=== PATIENT | male | born 1980 | race Caucasian/White ===

== ENCOUNTER 2019-01-11 11:12 | Emergency (ER) | payer SELFPAY ==
[2019-01-11 11:17] VITALS: BP 108/60; PULSE 92; TEMP 98.8; BMI 24.7
--- NOTE | 2019-01-11 12:24 | PDOC ---
History of Present Illness - General Chief Complaint: Pain Stated Complaint: ABD PAIN Time Seen by Provider: 01/11/19 11:45 History Source: Patient Exam Limitations: No Limitations - History of Present Illness Initial Comments: 01/11/19 12:23 CHIEF COMPLAINT: Abdominal pain HISTORY OF PRESENT ILLNESS: This is an otherwise healthy 38-year-old male who presents emergency department complaining of 3 days of generalized abdominal pain and nonbloody diarrhea, 3-4 times daily. He denies fevers/chills. He has not had nausea or vomiting. He denies recent travel. He did eat and a [employer] restaurant several days ago, although no one else was with him is ill. He reports taking Pepto-Bismol without resolution of symptoms. REVIEW OF SYSTEMS: GENERAL/CONSTITUTIONAL: No fever or chills. No weakness. No weight change. HEAD, EYES, EARS, NOSE AND THROAT: No change in vision. No ear pain or discharge. No sore throat. CARDIOVASCULAR: No chest pain or palpitations. RESPIRATORY: No cough, wheezing, or shortness of breath. GASTROINTESTINAL: See history of present illness. GENITOURINARY: No dysuria, frequency, or change in urination. MUSCULOSKELETAL: No joint or muscle swelling or pain. No neck or back pain. SKIN: No rash or easy bruising. NEUROLOGIC: No headache, vertigo, loss of consciousness, or loss of sensation. PSYCHIATRIC: No depression or anxiety. ENDOCRINE: No increased thirst. No abnormal weight change. HEMATOLOGIC/LYMPHATIC: No anemia, easy bleeding, or history of blood clots. ALLERGIC/IMMUNOLOGIC: No hives or skin allergy. No latex allergy. PHYSICAL EXAM: GENERAL: The patient is awake, alert, and fully oriented, in no acute distress. HEAD: Normal with no signs of trauma. ENT: Pupils equal, round and reactive to light, extraocular movements intact, sclera anicteric, conjunctiva clear. Neck supple. LUNGS: Clear to auscultation bilaterally. Normal excursion. No respiratory distress or use of accessory muscles. CV: RRR, S1/S2, no MRG. Cap refill < 2 sec. ABDOMEN: Soft, non-distended, diffusely tender without peritoneal signs; no guarding or rebound tenderness. EXTREMITIES: Normal range of motion, no edema. NEUROLOGICAL: Normal speech, normal gait. CN II-XII grossly intact. PSYCH: Normal mood, normal affect. SKIN: Warm, dry, normal turgor, no rashes or lesions noted. Past History - Past Medical History Allergies/Adverse Reactions: Allergies Allergy/AdvReac Type Severity Reaction Status Date / Time No Known Allergies Allergy Verified 01/11/19 11:17 Home Medications: Ambulatory Orders NK [No Known Home Medication] 01/01/16 COPD: No - Suicide/Smoking/Psychosocial Hx Smoking History: Never smoked Hx Alcohol Use: No Drug/Substance Use Hx: No *Physical Exam - Vital Signs Last Vital Signs Temp Pulse Resp BP Pulse Ox 98.8 F 92 H 18 108/60 98 01/11/19 11:14 01/11/19 11:14 01/11/19 11:14 01/11/19 11:14 01/11/19 11:14 ED Treatment Course - LABORATORY CBC & Chemistry Diagram: 01/11/19 12:35 01/11/19 12:35 Medical Decision Making - Medical Decision Making 01/11/19 12:51 A/P: 38-year-old male with generalized abdominal pain and diarrhea, no focal tenderness on exam. 1. Labs including CBC, CMP, lipase, UA 2. IV fluids 3. Reassess 01/11/19 13:53 K 3.4 - repleted orally Patient re-examined and is without focal abdominal tenderness Will dc with supportive measures Return precautions reviewed *DC/Admit/Observation/Transfer Diagnosis at time of Disposition: Diarrhea - Discharge Dispostion Disposition: HOME Condition at time of disposition: Stable Decision to Admit order: No - Referrals Referrals: [facility] – [place] [facility] [place] [Provider Group] - Patient Instructions Printed Discharge Instructions: Probiotics May Decrease Intensity and Duration of Diarrhea Due to Infection, DI for Diarrhea and Traveler's Diarrhea -- Adult, [place] Diet Additional Instructions: -Stay well-hydrated and take probiotics as prescribed -Follow up with primary care next week (referral enclosed) -Eat a bland diet (instructions enclosed) until you are feeling better -Return here for worsening pain, blood in the stool, or any other concerning symptoms - Post Discharge Activity Forms/Work/School Notes: Back to Work
[2019-01-11] MEDS ORDERED: SODIUM CHLORIDE 1,000 ML IV STA (12:31)
[2019-01-11 12:52] LABS: BASO % 0.4 % (0-2.0); EOS % 0.1 % (0-4.5); HEMATOCRIT 43.5 % (35.4-49); MCH 30.3 pg (25.7-33.7); MCHC 34.6 g/dl (32.0-35.9); MEAN CELL VOLUME 87.5 fl (80-96); MEAN PLT VOLUME 8.3 fl (7.5-11.1); MONO % 6.4 % (3.8-10.2); NEUT % 75.1 % (42.8-82.8); RBC 4.97 M/mm3 (4.00-5.60); RDW 12.6 % (11.9-15.9); WHITE BLOOD COUNT 4.4 K/mm3 (4.0-10.0)
[2019-01-11 13:12] LABS: PLATELET COUNT 146 K/MM3 (134-434)
[2019-01-11 13:23] LABS: BLOOD UREA NITROGEN 14.9 mg/dL (7-18); CREATININE 0.7 mg/dL (0.55-1.3); POTASSIUM 3.4 mmol/L (3.5-5.1)
[2019-01-11 13:24] LABS: ALBUMIN 3.8 g/dl (3.4-5.0); BILIRUBIN,TOTAL 0.6 mg/dL (0.2-1); CALCIUM 8.3 mg/dL (8.5-10.1); TOT PROT 7.2 g/dl (6.4-8.2)
[2019-01-11 13:39] LABS: EPI CELLS 1.8 /HPF (0-5/HPF); HYALINE CASTS 9 /lpf (0-8); PH,URINE 5.5 (5.0-8.0); URINE APPEARANCE CLEAR; URINE BACTERIA 2.5 /hpf (NEGATIVE); URINE BILIRUBIN NEGATIVE (NEGATIVE); URINE COLOR DK YELLOW; URINE GLUCOSE (UA) NEGATIVE (NEGATIVE); URINE KETONE NEGATIVE (NEGATIVE); URINE LEUK ESTERASE NEGATIVE (NEGATIVE); URINE NITRITE NEGATIVE (NEGATIVE); URINE PROTEIN 1+ (NEGATIVE); URINE RBC 2 /hpf (0-4); URINE UROBILINOGEN 0.2 mg/dL (0.2-1.0); URINE WBC 1 /hpf (0-5)
[2019-01-11] MEDS ORDERED: POTASSIUM CHLORIDE TABS 20 MEQ TABLET.ER (FP) PO ONE ×2 (13:52→14:08)
== END 2019-01-11 14:15 | disposition home or self-care (01) ==
LOC: JER 11:12
PROC: 3E0337Z Introduction of Electrolytic and Water Balance Substance into Peripheral Vein, Percutaneous Approach (ICD-10-PCS; principal; 2019-01-11)
DX: R19.7 Diarrhea, unspecified (principal); E87.6 Hypokalemia
CPT/HCPCS: 36415; 80053; 81003; 83690; 85025; 99281-25; J7030

== ENCOUNTER 2021-12-19 22:18 | Observation (INO) | payer OTHER ==
[2021-12-19 22:33] VITALS: TEMP 98.9; BMI 26.1
[2021-12-20] MEDS ORDERED: ASPIRIN 81 MG CHEWABLE TABLETS PO ONE (01:06)
[2021-12-20] MEDS ORDERED: ASPIRIN 81 MG CHEWABLE TABLETS ONE (01:07)
[2021-12-20 01:30] LABS: BASO % 0.9 % (0-2.0); HEMATOCRIT 41.1 % (35.4-49); HEMOGLOBIN 14.2 GM/dL (11.7-16.9); LYMPH % 27.8 % (8-40); MCH 30.3 pg (25.7-33.7); MCHC 34.5 g/dl (32.0-35.9); MEAN CELL VOLUME 87.9 fl (80-96); MONO % 8.1 % (3.8-10.2); NEUT % 61.2 % (42.8-82.8); PLATELET COUNT 225 10^3/uL (134-434); RBC 4.68 M/mm3 (4.00-5.60); RDW 13.2 % (11.9-15.9); WHITE BLOOD COUNT 6.6 K/mm3 (4.0-10.0)
[2021-12-20 01:39] LABS: INR 1.12 (0.83-1.09); PROTHROMBIN TIME (PATIENT) 12.9 SEC (9.7-13.0)
[2021-12-20 01:41] LABS: ACTIVATED PTT 34.2 SECONDS (25.2-36.5)
[2021-12-20 02:11] LABS: ALBUMIN 4.1 g/dl (3.4-5.0); BLOOD UREA NITROGEN 27.5 mg/dL (7-18); MAGNESIUM 2.4 mg/dL (1.8-2.4)
[2021-12-20 02:14] LABS: CREATININE 0.7 mg/dL (0.55-1.3)
[2021-12-20 02:16] LABS: BILIRUBIN,TOTAL 0.2 mg/dL (0.2-1); TOT PROT 7.4 g/dl (6.4-8.2)
[2021-12-20 02:19] LABS: N-TERMINAL BNP 8.6 pg/ml (5-125)
[2021-12-20] MEDS ORDERED: ASPIRIN COATED 81 MG TABLET.EC ONE (09:46)
[2021-12-20] MEDS ORDERED: ENOXAPARIN NA (PORCINE) 40 MG/0.4 ML DISP.SYRIN SQ ONE (09:47)
[2021-12-20] MEDS ORDERED: ASPIRIN COATED 81 MG TABLET.EC PO SCH (10:00)
[2021-12-20] MEDS ORDERED: ENOXAPARIN NA (PORCINE) 30 MG/0.3 ML DISP.SYRIN SQ SCH (10:00)
[2021-12-20] MEDS ORDERED: ENOXAPARIN NA (PORCINE) 40 MG/0.4 ML DISP.SYRIN SQ SCH (10:00)
[2021-12-20 11:13] LABS: PH,URINE 7.5 (5.0-8.0); URINE APPEARANCE CLEAR; URINE BILIRUBIN NEGATIVE (NEGATIVE); URINE COLOR YELLOW; URINE GLUCOSE (UA) NEGATIVE (NEGATIVE); URINE KETONE NEGATIVE (NEGATIVE); URINE LEUK ESTERASE NEGATIVE (NEGATIVE); URINE NITRITE NEGATIVE (NEGATIVE); URINE PROTEIN NEGATIVE (NEGATIVE); URINE UROBILINOGEN 0.2 mg/dL (0.2-1.0)
[2021-12-20 12:27] LABS: CHOLESTEROL 226 mg/dL (50-200); TRIGLYCERIDES 88 mg/dL (0-150)
[2021-12-20 12:28] LABS: LDL CHOLESTEROL (ONLY SJRH) 160 mg/dL (5-100)
[2021-12-20 12:30] LABS: HDL CHOLESTEROL 46 mg/dL (40-60)
[2021-12-20 15:09] VITALS: BP 113/67; PULSE 73
== END 2021-12-20 15:39 | disposition home or self-care (01) ==
LOC: JER 22:18 → JERBED 12-20 05:52
PROVIDERS: ADMIT Internal Medicine; ATTEND Internal Medicine
PROC: 3E023GC Introduction of Other Therapeutic Substance into Muscle, Percutaneous Approach (ICD-10-PCS; principal; 2021-12-20)
DX: R07.89 Other chest pain (principal); M79.602 Pain in left arm; R07.1 Chest pain on breathing; R94.31 Abnormal electrocardiogram [ECG] [EKG]; Z29.8 Encounter for other specified prophylactic measures
CPT/HCPCS: 36415; 71046-TC-FY; 71250-TC; 80053; 80061; 81003; 83036; 83735; 83880; 84443; 84484; 85025; 85610; 85730; 87086; 93005; 93010; 93306-TC; 96372; 99285-25; C9803-CS; G0378; U0003; U0005

== ENCOUNTER 2023-01-12 05:44 | Emergency (ER) | payer OTHER ==
[2023-01-12 06:01] VITALS: BP 108/64; PULSE 97; RESP 18; TEMP 98.9; BMI 25.0
[2023-01-12] MEDS ORDERED: SODIUM CHLORIDE 0.9% 500 ML INFUS.BAG IV ONE (06:22)
[2023-01-12] MEDS ORDERED: ACETAMINOPHEN 1000 MG/100 ML BAG IVPB ONE (06:22)
[2023-01-12] MEDS ORDERED: ACETAMINOPHEN INJECTION 100 ML IVPB ONE (06:26)
[2023-01-12 07:05] LABS: BASO % 0.6 % (0-2.0); HEMATOCRIT 43.3 % (35.4-49); HEMOGLOBIN 14.5 GM/dL (11.7-16.9); LYMPH % 7.8 % (8-40); MCH 29.4 pg (25.7-33.7); MCHC 33.4 g/dl (32.0-35.9); MONO % 3.2 % (3.8-10.2); NEUT % 88.4 % (42.8-82.8); PLATELET COUNT 207 10^3/uL (134-434); RBC 4.92 M/mm3 (4.00-5.60); WHITE BLOOD COUNT 9.7 K/mm3 (4.0-10.0)
[2023-01-12 07:11] LABS: POTASSIUM 3.2 mmol/L (3.5-5.1)
[2023-01-12 07:13] LABS: CALCIUM 8.9 mg/dL (8.5-10.1)
[2023-01-12 07:14] LABS: ALBUMIN 3.9 g/dl (3.4-5.0); BLOOD UREA NITROGEN 17.4 mg/dL (7-18); MAGNESIUM 2.2 mg/dL (1.8-2.4)
[2023-01-12 07:16] LABS: CREATININE 0.8 mg/dL (0.55-1.3)
[2023-01-12 07:18] LABS: BILIRUBIN,TOTAL 0.6 mg/dL (0.2-1); TOT PROT 7.4 g/dl (6.4-8.2)
[2023-01-12] MEDS ORDERED: FAMOTIDINE 20 MG/50 ML IVPB 20 MG/50 ML MG IVPB ONE ×2 (07:21→07:30)
== END 2023-01-12 10:04 | disposition home or self-care (01) ==
LOC: JER 05:44
PROC: 3E033GC Introduction of Other Therapeutic Substance into Peripheral Vein, Percutaneous Approach (ICD-10-PCS; principal; 2023-01-12)
PROC: 3E033GC Introduction of Other Therapeutic Substance into Peripheral Vein, Percutaneous Approach (ICD-10-PCS; 2023-01-12)
DX: R10.9 Unspecified abdominal pain (principal); R19.7 Diarrhea, unspecified; Z20.822 Contact with and (suspected) exposure to COVID-19
CPT/HCPCS: 0241U-QW; 36415; 80053; 83690; 83735; 85025; 93005; 93010; 99284-25

== ENCOUNTER 2024-07-24 14:20 | Emergency (ER) | payer OTHER ==
[2024-07-24 14:38] VITALS: RESP 19; BMI 25.0
[2024-07-24] MEDS ORDERED: METOCLOPRAMIDE HCL INJECTION 10 MG/2 ML VIAL ONE (15:25)
[2024-07-24] MEDS ORDERED: ACETAMINOPHEN INJECTION 100 ML ONE (15:25)
[2024-07-24 15:29] LABS: BASO % 0.8 % (0-2.0); EOS % 0.1 % (0-4.5); HEMATOCRIT 41.1 % (35.4-49); MCH 30.3 pg (25.7-33.7); MCHC 34.1 g/dl (32.0-35.9); MEAN CELL VOLUME 88.7 fl (80-96); MEAN PLT VOLUME 7.9 fl (7.5-11.1); MONO % 6.1 % (3.8-10.2); PLATELET COUNT 182 10^3/uL (134-434); RBC 4.63 M/mm3 (4.00-5.60); RDW 13.1 % (11.9-15.9); WHITE BLOOD COUNT 6.9 K/mm3 (4.0-10.0)
[2024-07-24] MEDS: METOCLOPRAMIDE HCL INJECTION 10 MG/2 ML VIAL IVPB ONE (15:31)
[2024-07-24] MEDS: SODIUM CHLORIDE 0.9% 500 ML INFUS.BAG IV ONE (15:31)
[2024-07-24] MEDS: ACETAMINOPHEN 1000 MG/100 ML BAG IVPB ONE (15:31)
[2024-07-24 15:45] LABS: POTASSIUM 3.6 mmol/L (3.5-5.1)
[2024-07-24 15:47] LABS: CALCIUM 8.5 mg/dL (8.5-10.1)
[2024-07-24 15:48] LABS: ALBUMIN 3.6 g/dl (3.4-5.0); BLOOD UREA NITROGEN 15.5 mg/dL (7-18)
[2024-07-24 15:51] LABS: CREATININE 0.7 mg/dL (0.55-1.3)
[2024-07-24 15:53] LABS: BILIRUBIN,TOTAL 0.7 mg/dL (0.2-1); TOT PROT 7.3 g/dl (6.4-8.2)
[2024-07-24 16:37] VITALS: BP 106/61; PULSE 92; TEMP 100
[2024-07-24] MEDS ORDERED: AMOX TR/POT CLAV 500MG/125MG TABLETS (FP) ONE (16:41)
[2024-07-24] MEDS ORDERED: AZITHROMYCIN 250 MG TABLET ONE (16:42)
[2024-07-24 16:43] LABS: HIV INTERPRETATION NEGATIVE (NEGATIVE)
[2024-07-24] MEDS: AZITHROMYCIN 250 MG TABLET PO ONE (16:46)
[2024-07-24] MEDS: AMOXICILLIN 500 MG CAPSULE (FP) PO ONE (16:46)
== END 2024-07-24 17:07 | disposition home or self-care (01) ==
LOC: JER 14:20
PROC: 3E033NZ Introduction of Analgesics, Hypnotics, Sedatives into Peripheral Vein, Percutaneous Approach (ICD-10-PCS; principal; 2024-07-24)
PROC: 3E033GC Introduction of Other Therapeutic Substance into Peripheral Vein, Percutaneous Approach (ICD-10-PCS; 2024-07-24)
DX: J18.9 Pneumonia, unspecified organism (principal); R51.9 Headache, unspecified; R50.9 Fever, unspecified; M79.10 Myalgia, unspecified site; R00.0 Tachycardia, unspecified; R09.89 Other specified symptoms and signs involving the circulatory and respiratory systems; Z20.822 Contact with and (suspected) exposure to COVID-19
CPT/HCPCS: 0241U-QW; 36415; 71046-TC-FY; 80053; 85025; 86803; 87389; 99284-25; J0131

== ENCOUNTER 2024-07-25 04:22 | Observation (INO) | payer OTHER ==
[2024-07-25 04:36] VITALS: RESP 20; BMI 25.0
[2024-07-25] MEDS ORDERED: KETOROLAC TROMETHAMINE 15 MG/ML VIAL ONE ×2 (05:00→07:17)
[2024-07-25] MEDS ORDERED: METOCLOPRAMIDE HCL INJECTION 10 MG/2 ML VIAL ONE (05:00)
[2024-07-25] MEDS: METOCLOPRAMIDE HCL INJECTION 10 MG/2 ML VIAL IVPUSH ONE (05:10)
[2024-07-25] MEDS: KETOROLAC TROMETHAMINE 15 MG/ML VIAL IVPUSH ONE ×2 (05:10→07:28)
[2024-07-25] MEDS: LACTATED RINGERS SOLUTION 1000 ML INFUS.BAG IV ONE (05:10)
[2024-07-25] MEDS ORDERED: DEXAMETHASONE SOD PHOSPHATE 4 MG/1 ML VIAL ONE (06:54)
[2024-07-25] MEDS: DEXAMETHASONE SOD PHOSPHATE 4 MG/1 ML VIAL IVPUSH ONE (06:57)
[2024-07-25 09:21] LABS: CSF APPEARANCE CLEAR (CLEAR); CSF COLOR COLORLESS (COLORLESS); CSF WBC 1 mm3 (0-5)
[2024-07-25 09:45] LABS: BASO % 0.3 % (0-2.0); EOS % 0.1 % (0-4.5); HEMATOCRIT 37.4 % (35.4-49); HEMOGLOBIN 12.7 GM/dL (11.7-16.9); MCH 30.2 pg (25.7-33.7); MEAN CELL VOLUME 88.8 fl (80-96); MEAN PLT VOLUME 7.9 fl (7.5-11.1); MONO % 3.2 % (3.8-10.2); NEUT % 88.4 % (42.8-82.8); PLATELET COUNT 182 10^3/uL (134-434); RBC 4.22 M/mm3 (4.00-5.60); RDW 12.9 % (11.9-15.9); WHITE BLOOD COUNT 6.8 K/mm3 (4.0-10.0)
[2024-07-25 09:46] LABS: BF GLUCOSE (CSF ONLY) 67 mg/dL (40-70)
[2024-07-25] MEDS ORDERED: morphine SULFATE 4 MG/ML VIAL ONE (09:46)
[2024-07-25] MEDS ORDERED: VANCOMYCIN 1 GM PREMIX (F) 1 GM/200 ML BAG ONE (09:49)
[2024-07-25 09:51] LABS: INR 1.34 (0.83-1.09); PROTHROMBIN TIME (PATIENT) 15.3 SEC (9.7-13.0)
[2024-07-25] MEDS: morphine CARPU-JECT 4 MG/1 ML DISP.SYRIN IVPUSH ONE (10:00)
[2024-07-25] MEDS: VANCOMYCIN 1,000 MG in DEXTROSE 5%-WATER - 250 ML IVPB ONE (10:01)
[2024-07-25 10:03] VITALS: BP 108/60; PULSE 81; TEMP 98.3
[2024-07-25 10:12] LABS: POTASSIUM 3.5 mmol/L (3.5-5.1)
[2024-07-25 10:15] LABS: ALBUMIN 3.2 g/dl (3.4-5.0); BLOOD UREA NITROGEN 10.5 mg/dL (7-18); CALCIUM 8.3 mg/dL (8.5-10.1)
[2024-07-25 10:18] LABS: CREATININE 0.5 mg/dL (0.55-1.3)
[2024-07-25 10:20] LABS: BILIRUBIN,TOTAL 0.4 mg/dL (0.2-1); TOT PROT 6.6 g/dl (6.4-8.2)
[2024-07-25 10:27] LABS: ERYTHROCYTE SEDIMENTATION RATE 80 mm/hr (0-10)
[2024-07-25] MEDS ORDERED: ACETAMINOPHEN INJECTION 100 ML ONE (13:39)
[2024-07-25] MEDS: ACETAMINOPHEN 1000 MG/100 ML BAG IVPB ONE (13:43)
[2024-07-25] MEDS ORDERED: AMOXICILLIN 500 MG CAPSULE (FP) PO SCH (14:00)
[2024-07-25] MEDS: CEFTRIAXONE 2 GM-D5W BAG 2 GM/50 ML BAG IVPB ONE (14:02)
[2024-07-25] MEDS: LIDOCAINE VISCOUS 2% ORAL/TOP 100 ML BOTTLE MM ONE (14:14)
[2024-07-26] MEDS ORDERED: AZITHROMYCIN 250 MG TABLET PO SCH (10:00)
== END 2024-07-25 18:00 | disposition home or self-care (01) ==
LOC: JER 04:22 → INTOOBSV 09:05 → UNDOADMOB 09:05 → JERBED 09:05
PROVIDERS: ADMIT Internal Medicine; ATTEND Internal Medicine
PROC: 3E033NZ Introduction of Analgesics, Hypnotics, Sedatives into Peripheral Vein, Percutaneous Approach (ICD-10-PCS; principal; 2024-07-25)
PROC: 3E03329 Introduction of Other Anti-infective into Peripheral Vein, Percutaneous Approach (ICD-10-PCS; 2024-07-25)
PROC: 3E033GC Introduction of Other Therapeutic Substance into Peripheral Vein, Percutaneous Approach (ICD-10-PCS; 2024-07-25)
PROC: 3E0337Z Introduction of Electrolytic and Water Balance Substance into Peripheral Vein, Percutaneous Approach (ICD-10-PCS; 2024-07-25)
PROC: 009U3ZX Drainage of Spinal Canal, Percutaneous Approach, Diagnostic (ICD-10-PCS; 2024-07-25)
DX: J18.9 Pneumonia, unspecified organism (principal); R51.9 Headache, unspecified
CPT/HCPCS: 36415; 62268; 70450-TC; 80053; 82945; 84157; 85025; 85610; 85651; 85730; 86140; 86694; 86735; 86765; 86787; 86788; 86789; 87040; 87070; 87205; 93005; 93010; 96365; 96366; 96375; 99285-25; G0378; J0131